=== PATIENT | female | born 1965 | race Caucasian/White ===

== ENCOUNTER → 2018-02-01 08:43 | Outpatient (CLI) | payer OTHER, SELFPAY ==
--- NOTE | 2018-02-01 08:50 | MR_ITS ---
MR head/brain wo/w con HISTORY: Follow-up pituitary adenoma ORDERING PHYSICIAN: Radha Hoang PATIENT AGE: 52 years Comparison: To-U'r TECHNIQUE: Standard multiplanar multiecho sequences are performed without and with gadolinium enhancement. Thin section pre and post enhanced and post enhanced dynamic images obtained of the pituitary.. FINDINGS: No midline shift, mass effect, intracranial hemorrhage, or hydrocephalus. There is normal kirkpatrick-white matter differentiation. There are few scattered T2 white matter hyperintensities which are not significant change. No evidence of acute infarction. The cerebellopontine angles, cerebellum, and brainstem are unremarkable. Enlarged pituitary once again noted. The pituitary measures 10 x 9 x 10 mm. In the posterior aspect of the pituitary there is an 6 mm area which is hypointense on the delayed enhanced images. The pituitary stalk is deviated toward the left inferiorly. Previously dynamic images were not performed. No other enhancing lesions are evident. IMPRESSION: 1. Mildly enlarged pituitary with mild deviation of the pituitary stalk toward the left. The large pituitary does not appear significant change compared to the previous exam. There is no compression of the optic chiasm. 2. There is an area of hypoenhancement in the posterior aspect of the pituitary measuring approximately 6 mm. This was not as apparent on the previous study as dynamic images were not performed. This is suspicious for small microadenoma probably not significant changed. Continued follow-up recommended. Follow-up should BE performed with dynamic thin section images as on today's exam.. 2.
--- NOTE | 2018-02-01 15:09 | XR_ITS ---
EXAM: XR cervical spine 2V HISTORY: Neck pain ITS.REASON: CERVICALGIA ORDERING PHYSICIAN: Radha Hoang PATIENT AGE: 52 years COMPARISON: None FINDINGS: Normal alignment. No fracture or dislocation. No lytic or blastic change. There is mild degenerative disc disease at C6-C7 and C5-C6. There is normal alignment. No fracture or dislocation. No cervical ribs. IMPRESSION: Mild degenerative disc disease C5-C6 and C6-C7
== END ==
PROVIDERS: PCP Family Medicine; Visit Provider Family Medicine
DX: D35.2 Benign neoplasm of pituitary gland (principal); M54.2 Cervicalgia
CPT/HCPCS: 70553; 72040; A9576

== ENCOUNTER → 2018-02-21 15:08 | Outpatient (CLI) | payer OTHER, SELFPAY ==
--- NOTE | 2018-02-21 15:10 | MM_ITS ---
MM Dig screening mamm BI w/CAD ORDERING PHYSICIAN : Radha Hoang PATIENT AGE: 52 years GENDER: Female COMPARISON: February 2011, April 2013, October 2016 INDICATION: ITS.REASON: SCREENING no hormones no new complaints noncontributory family history TECHNIQUE: Standard CC and MLO images were obtained. R2 CAD reviewed. FINDINGS: moderate breast density with no significant new findings. No dominant mass nor suspicious mass. No suspicious Calcification. No architectural irregularities. Scattered benign punctate calcifications most evident at the right breast... Follow up one year recommended Left breast.. No significant new findings Small likely intramammary node at the axillary tail left breast was seen on previously and can be followed . Right breast. Unchanged IMPRESSION: . Stable bilateral mammogram. Follow-up in one year recommended. BI-RADS Category: 1 Negative RECOMMENDED FOLLOW-UP: 1YR 1 YEAR FOLLOW-UP (A letter has been sent to the patient regarding results of the study.)
== END ==
PROVIDERS: PCP Family Medicine; Visit Provider Family Medicine
DX: Z12.31 Encounter for screening mammogram for malignant neoplasm of breast (principal)
CPT/HCPCS: 77067

== ENCOUNTER → 2020-07-03 12:44 | Outpatient (CLI) | payer OTHER, SELFPAY ==
--- NOTE | 2020-07-03 13:04 | MM_ITS ---
PROCEDURE: MM DIG SCREENING MAMM BI W/CAD Digital Breast Tomosynthesis Included CLINICAL INDICATION: SCREENING There is no personal or family history of breast cancer COMPARISON: MG [facility] DIG MAMM-SCREEN DEB from 05/08/2013 MG [facility] DIG MAMM-SCREEN DEB W/CAD from 11/06/2016 [facility] MM Dig screening mamm BI w/CAD from 02/21/2018 TECHNIQUE: Standard CC and MLO images and 3D Tomosynthesis was obtained. R2 CAD reviewed. FINDINGS: Moderate diffuse fibroglandular densities are seen throughout both breast and the findings are fairly symmetrical bilaterally. No CAD markings. There are scattered benign-appearing calcifications in each breast. There is minimal arterial calcification in each breast as well. There is a stable small nodular benign-appearing density outer quadrant left breast. There are several small nodes in both axilla. There is no suspicious lesion and no suspicious microcalcifications. IMPRESSION: Fibrofatty parenchyma with no suspicious lesions seen BI-RAD Category: 2 Benign Finding(s) FOLLOW-UP: 1YR 1 Year Follow-up (A letter has been sent to the patient regarding results of the study.) Dictated by: Dr. Marlon Godinez MD 07/05/2020 11:07 Dr. Marlon Godinez MD in [place] 07/05/2020 11:07
== END ==
PROVIDERS: PCP Family Medicine; Visit Provider Family Medicine
DX: Z12.31 Encounter for screening mammogram for malignant neoplasm of breast (principal)
CPT/HCPCS: 77063; 77067

== ENCOUNTER → 2022-08-12 08:55 | Outpatient (CLI) | payer OTHER, SELFPAY ==
[2022-08-12 09:24] LABS: Basophils # 0.1 K/mm3 (0-0.2); Basophils % 0.8 % (0.1-2.0); Eosinophils # 0.2 K/mm3 (0.0-0.4); Eosinophils % 2.9 % (0.1-12.0); Hematocrit 43.3 % (37.0-47.0); Hemoglobin 14.1 g/dL (12.2-16.2); Lymphocytes # 2.6 K/mm3 (0.7-4.5); Lymphocytes % 38.9 % (10-50); Mean Corpuscular HGB Conc 32.6 g/dL (31.8-35.4); Mean Corpuscular Hemoglobin 29.9 pg (27.0-31.2); Mean Corpuscular Volume 91.8 fl (81-99); Mean Platelet Volume 8.9 fl (7.4-10.4); Monocytes # 0.4 K/mm3 (0.1-1.0); Monocytes % 6.2 % (1.7-9.3); Neutrophils # 3.5 K/mm3 (1.8-7.8); Neutrophils % 51.2 % (37.0-80.0); Platelet Count 240 K/mm3 (142-424); Red Blood Count 4.72 M/mm3 (4.20-5.40); Red Cell Distribution Width 14.2 % (11.5-17.5); White Blood Count 6.8 K/mm3 (4.8-10.8)
== END ==
PROVIDERS: PCP Family Medicine; Visit Provider Family Medicine
DX: K52.9 Noninfective gastroenteritis and colitis, unspecified (principal)
CPT/HCPCS: 36415; 85025; 87045; 87177

== ENCOUNTER 2023-09-14 11:55 | Outpatient (CLI) | payer OTHER, SELFPAY ==
--- NOTE | 2023-09-14 12:03 | XR_ITS ---
FINAL REPORT CLINICAL HISTORY: FOOT PAIN FINDINGS: Right foot Three views were obtained. There is no acute fracture or dislocation. There is mild hallux valgus deformity. There are mild degenerative changes of the 1st metatarsophalangeal joint. Cortical calcification is seen along the lateral 5th metatarsal base which may be due to chronic tendinitis or old avulsion fractures. IMPRESSION: Degenerative and chronic appearing findings. Reviewed, Interpreted and Dictated by Finn Gonzalez MD Transcribed by Bri Hilton Authenticated and [facility]
== END 2023-09-14 23:59 | disposition home or self-care (01) ==
PROVIDERS: PCP Family Medicine; Visit Provider Nurse Practitioner Family
DX: M79.671 Pain in right foot (principal)
CPT/HCPCS: 73620

== ENCOUNTER 2023-12-30 15:15 | Outpatient (CLI) | payer OTHER, SELFPAY ==
--- NOTE | 2023-12-30 15:18 | MM_ITS ---
PROCEDURE INFORMATION: Exam: MG Bilateral Screening 3D Mammography Exam date and time: 12/30/2023 3:14 PM Age: 58 years old Clinical indication: Screening examination TECHNIQUE: Imaging protocol: Bilateral Screening tomosynthesis and 2D mammography including computer-aided detection (CAD) when performed. COMPARISON: 1. MG MM DIG SCREENING MAMM BI W/CAD 07/03/2020 1:11 PM 2. MG [facility] MM Dig screening mamm BI w/CAD 02/21/2018 4:06 PM FINDINGS: MAMMOGRAPHY: Breast composition: There are scattered areas of fibroglandular density. Mass: None. Architectural distortion: None. Calcifications: No suspicious calcifications. Asymmetric density: None. Skin thickening: None. Axillary adenopathy: None. IMPRESSION: No mammographic evidence of malignancy. Annual screening is recommended unless otherwise clinically indicated. ASSESSMENT: BI-RADS Category 1: Negative.
== END 2023-12-30 23:59 | disposition home or self-care (01) ==
LOC: RAD 15:15
PROVIDERS: PCP Family Medicine; Visit Provider Family Medicine
DX: Z12.31 Encounter for screening mammogram for malignant neoplasm of breast (principal)
CPT/HCPCS: 77063; 77067